=== PATIENT | female | born 1990 | race Two or more races ===

== ENCOUNTER → 2024-07-23 | Outpatient (REF) | payer OTHER ==
[2024-07-23 18:06] LABS: C REACTIVE PROTEIN QUANTITATIV < 0.40 MG/DL (<1.0)
[2024-07-23 18:08] LABS: IMMUNOGLOBULIN A 166.4 MG/DL (40-350); RHEUMATOID FACTOR QUANT < 3.5 IU/ML (<14)
[2024-07-23 18:43] LABS: HEPATITIS C VIRUS ABY INDEX < 0.02 INDEX (<0.8)
[2024-07-23 18:47] LABS: THYROID PEROXIDASE ANTIBODY > 1300.0 U/ML (<60.0)
== END ==
LOC: M LAB REF 16:46
PROVIDERS: ATTEND Internal Medicine
DX: M06.4 Inflammatory polyarthropathy (principal); R21 Rash and other nonspecific skin eruption

== ENCOUNTER → 2024-11-26 | Outpatient (REF) | payer OTHER ==
[2024-11-26 18:25] LABS: GC DNA AMPLIFICATION NEGATIVE (NEGATIVE)
[2024-11-28 14:17] LABS: HPV APTIMA Not Detected (Not Detected)
[2024-11-30 12:30] LABS: Trichomonas vaginalis (AMP) NOT DETECTED (NEGATIVE)
== END ==
LOC: M PLALAB 13:13
PROVIDERS: ATTEND Obstetrics & Gynecology
DX: Z01.419 Encounter for gynecological examination (general) (routine) without abnormal findings (principal)